=== PATIENT | female | born 2005 | race Caucasian/White ===

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

== ENCOUNTER 2024-01-11 19:00 | Emergency (ER) | payer OTHER ==
[2024-01-11 19:09] VITALS: BP 118/58; PULSE 88; RESP 20; TEMP 98.6; BMI 28.8
[2024-01-11] MEDS ORDERED: ACETAMINOPHEN 500 MG TABLET (FP) ONE (20:38)
[2024-01-11] MEDS ORDERED: FLUORESCEIN NA 1 EA STRIP ONE (20:38)
[2024-01-11] MEDS ORDERED: TETRACAINE 0.5% OPHTH SOLN 2 ML BOTTLE ONE (20:39)
[2024-01-11] MEDS: ACETAMINOPHEN 500 MG TABLET (FP) PO ONE (20:40)
[2024-01-11] MEDS: TETRACAINE 0.5% OPHTH SOLN 2 ML BOTTLE OD ONE (20:44)
[2024-01-11] MEDS: FLUORESCEIN NA 1 EA STRIP OD ONE (20:44)
[2024-01-11] MEDS ORDERED: AMOX TR/POT CLAV 875MG/125MG TABLETS (FP) ONE (21:20)
[2024-01-11] MEDS: AMOX TR/POT CLAV 875MG/125MG TABLETS (FP) PO ONE (21:24)
== END 2024-01-11 21:24 | disposition home or self-care (01) ==
LOC: JERFT 19:00
DX: L03.213 Periorbital cellulitis (principal)
CPT/HCPCS: 84703; 99283-25